=== PATIENT | female | born 1940 | race Caucasian/White ===

== ENCOUNTER 2023-04-16 10:12 | Outpatient (REF) | payer MEDICARE, SELFPAY ==
[2023-04-20 17:22] LABS: Acetylcholine Receptor Binding <0.30 nmol/L
[2023-05-02 16:33] LABS: Acetylcholine Recep Modulating <1
== END 2023-04-16 10:13 | disposition home or self-care (01) ==
LOC: HO.LAB 10:12
PROVIDERS: PCP Internal Medicine; Visit Provider Psychiatry & Neurology Neurology
DX: G70.00 Myasthenia gravis without (acute) exacerbation (principal)
CPT/HCPCS: 36415; 83519

== ENCOUNTER 2025-03-17 15:20 | Outpatient (AMB) | payer BC, SELFPAY ==
--- OUTSIDE RECORDS SUMMARY | 2025-03-17 15:31 | XMS_ITS | Data Portability ---
Author Organization [place] [facility],, HIEN DOTY MD Address [address] [place] [address] Assessment No assessment recorded. Plan of Treatment Reminders Order Date Submit Date Provider Last Modified By Organization Details Last Modified Time Details Appointments None record ed. Lab None record ed. Referral None record ed. Procedures None record ed. Surgeries None record ed. Imaging None record ed. Medication Orders None record ed. Patient TargetsNo targets recorded. Patient InstructionsNo instructions recorded. Reason for Referral None Reported. Medical Equipment None Reported. Allergies No known drug allergies Medications Not known to be on any medication Vitals None Recorded Social History None recorded. Functional Status None recorded. Mental Status None recorded. Family History Nothing Reported. Medical History No medical history recorded. Gynecological HistoryNo gynecological history recorded. Obstetrics History GPAL:G 0 P 0 0 0 0 Immunizations Vaccine Type Date Status Note Provider Nam e and Address Organization Details Recorded Time COVID-19, mRNA, LNP-S, PF, 100 mcg/0.5mL dose or 50 mcg/0.25mL dose 10/08/2020 completed Hien Doty MD [address], [place], [address], [facility], 10/08/2020 11:12:21 COVID-19, mRNA, LNP-S, PF, 100 mcg/0.5mL dose or 50 mcg/0.25mL dose 11/05/2020 completed Hien Doty MD [address], [place], [address], [facility], 11/05/2020 11:11:11 Past Encounters Encounter ID Performer Location Encounter Start Date Encounter Closed Date Diagnosis/Indication Diagnosis SNOMED-CT Code Diagnosis ICD10 Code Diagnosis Note [id number] MD HIEN Razo MD [address] [place] [id number] 10/08/2020 10:45:25 10/10/2020 09:29:03 Administration of viral vaccine [id number] [id number] MD HIEN Razo MD [address] [place] [address] 11/05/2020 10:41:45 11/05/2020 11:55:22 Administration of viral vaccine [id number] Z23 Health Concerns Section Related Observation LastModified by Organization Detai ls LastModified Time None Recorded Concern Status LastModified by Organization Details LastModified Time None Recorded Advance Directives Directive None Recorded Payers Insurance Date Sequence Insurance Name Policy Number Policy Osuna Covered Member ID Osuna Member ID Guarantor Name 11/02/2020 1 MEDICARE B-[place]: [facility] [employer] Tiana Pope [id number] Tiana Pope OBGyn Episode No OBEpisode recorded.
--- NOTE | 2025-03-17 16:01 | A.OFFVIS_ITS ---
Intake Visit Reasons: 3m/ MG Allergies No Known Allergies Allergy (Verified 03/17/25 16:07) Medication List - Last Reconciled 03/17/25 by Zuleika De La Paz CNP calcium glucarate 1 tab-cap PO BID cholecalciferol (vitamin D3) 50 mcg PO DAILY estradiol 1 mg PO DAILY pantoprazole 40 mg PO BID prednisone 10 mg (2 x 5 mg) PO DAILY 30 days teriparatide (Forteo) 20 mcg subcut DAILY HPI Comments Details: Eye symptoms were better with increased dose of prednisone 10mg/day. No double vision. No double vision at night when tired. No eyelid drooping. No trouble swallowing. No new or increased weakness. Breathing okay and doing pulmonary exercises. Still exercising on bike and treadmill for 30 minutes/day and doing some yoga. No falls. 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 Reading during the day. Decreased prednisone to 5mg/day and had eye symptoms of double vision after few days. Increased back to 7.5mg/day, but was having double vision at night when tired. Following with endocrinology for osteoporosis. Hx of compression fx of LS spine 10/2022. Hospitalized end of 12/2021 with COVID and pneumonia along with her . Off pyridostigmine in 12/2021. Developed diplopia in 2016, seen by eye doctor, and given prisms. In late 2018, symptoms of diplopia returned to the point that she had to close one eye. She had elevated acetylcholine receptor binding antibodies. At one point, her right eye used to droop. 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 She may have some weakness in arms as they get fatigued toward end of 3-hour music lessons and sometimes head feels heavy on neck. Interestingly, her also has MG but has been in remission since 2006. [facility] Medical History (Updated 03/17/25 @ 17:42 by Zuleika De La Paz CNP) Pancreatic duct obstruction Edema GERD (gastroesophageal reflux disease) Myasthenia gravis Surgical History (Updated 03/17/25 @ 14:20 by Jessica Szymanski MA) History of cataract surgery History of total bilateral knee replacement (TKR) History of hysterectomy Review of Systems Const Denies chills, Denies daytime sleepiness, Denies difficulty sleeping, Reports fatigue, Denies fever(s), Denies frequent falls, Denies headache(s), Denies increased appetite, Denies poor appetite, Denies snoring, Denies weakness, De nies weight gain and Denies weight loss Eyes Denies loss of vision ENT Denies vertigo, Denies dizziness, Denies headache(s) and Reports neck pain Card Denies chest pain at rest, Denies chest pain with activity, Denies syncope, Denies leg edema, Denies palpitations, Denies dyspnea and Denies dyspnea on exertion Resp Denies cough, Denies dyspnea, Denies dyspnea on exertion and Denies snoring GI Denies abdominal pain, Denies constipation, Denies heartburn, Denies diarrhea a nd Denies nausea Denies urinary frequency, Denies urinary incontinence and Denies urinary urgency Musc Denies abnormal gait, Denies back pain, Reports myalgias, Denies arthralgias, Reports neck pain, Reports numbness, Denies stiffness and Reports tingling Neuro Denies abnormal gait, Denies vertigo, Denies dizziness, Denies syncope, Denies frequent falls, Denies headache(s), Denies lack of coordination, Denies loss of vision, Denies memory loss, Reports numbness, Denies Other visual disturbances, Denies restless legs, Denies seizure-like activity, Reports tingling, Denies paresthesias, Denies tremor(s) and Denies weakness Psych Denies anxiety, Denies depression, Denies memory loss, Denies visual hallucinations and Denies hallucinations Endo Reports fatigue and Denies palpitations Physical Exam Const Other: General Appearance:? normal, in no acute distress. Heart:? S1, S2 normal, no murmurs. Lungs:? clear anteriorly and posteriorly. Musculoskeletal:? normal. Extremities:? no edema. Psych:? alert, oriented, cognitive function intact, cooperative with exam. Neuro Other: Abnormal Neurological Findings:?eye movements are now full with no diplopia on left lateral gaze. Neck flexor weakness has resolved. Mild?iliopsoas?weakness bilaterally 5-/5 Mental Status: alert and oriented X 3. Normal attention, orientation, memory, and affect. Cranial Nerves: Pupils are equal, round, and reactive to light. External ocular muscles are intact. Visual esquivel are full, no ptosis. Face is symmetrical, no facial weakness or droop. Facial sensations are normal. Tongue protrudes in midline. Palate elevates symmetrically. Shoulder shrugging is normal Motor Examination: Normal muscle tone, bulk and strength. No atrophy or fasciculations. No drift of the extended upper extremities. DTR 2+. Plantars are flexor. Straight Leg Raisin degrees. Sensory Exam: Normal light touch, temperature, pinprick, vibration, and joint- position sensations. Rhomberg sign is absent. Coordination: No ataxia. No titubation. Thjqbl-[id number]-pejm, qzll-unty-qjfi test, and rapid alternating movements were normal. Gait Exam: Within normal limits. Cerebellar Signs: [id number] and sdoo-ye-dnzs is normal. No dysdiadochokinesia. Extrapyramidal System: No tremor, rigidity with normal facial expressions. No bradykinesia. No bradyphrenia. Normal arm swing and posture. No propulsion or retropulsion. Speech: Normal. No dysphasia or dysarthria. Assessment & Plan Assessment & Plan (1) Myasthenia gravis: Code(s): G70.00 - Myasthenia gravis without (acute) exacerbation Category: Medical Plan: Continue prednisone 5mg 2 tablets once a day. May try to reduce dose to 7.5mg/day. Plan . Medications: New prednisone 10 mg (2 x 5 mg) PO DAILY 60 tabs 5RF 30 days Coding Level of Care Code Est Pt Level 3 (20073) Diagnoses Myasthenia gravis G70.00
== END 2025-03-17 16:22 | disposition home or self-care (01) ==
LOC: HO.HSM 15:21
PROVIDERS: PCP Internal Medicine; Referring Provider Internal Medicine; Visit Provider Registered Nurse
DX: G70.00 Myasthenia gravis without (acute) exacerbation (principal)
CPT/HCPCS: 99213